=== PATIENT | female | born 1995 | race Hispanic/Latino ===

== ENCOUNTER 2017-08-11 21:49 | Inpatient (IN) | payer MEDICAID, OTHER ==
[~2017-08-11] VITALS: Ht 165.1 cm; Wt 51.3 kg
[2017-08-11 22:21] LABS: APPEARANCE,URINE Clear (CLEAR); BILIRUBIN,URINE Negative (NEGATIVE); COLOR,URINE Yellow (YELLOW); GLUCOSE, URINE (UA) Negative (NEGATIVE); KETONES,URINE Negative (NEGATIVE); LEUKOCYTE ESTERASE ,URINE Moderate (NEGATIVE); NITRATE,URINE Negative (NEGATIVE); OCCULT BLOOD,URINE Negative (NEGATIVE); PH,URINE 7.5 (5.0-8.0); PROTEIN,URINE Negative (NEGATIVE)
[2017-08-11 22:30] LABS: AMPHET/METH SCREEN,URINE NEGATIVE (NEGATIVE); BARBITURATE SCREEN, URINE NEGATIVE (NEGATIVE); BENZODIAZEPINES SCREEN,URINE NEGATIVE (NEGATIVE); CANNABINOID SCREEN,URINE NEGATIVE (NEGATIVE); COCAINE SCREEN,URINE NEGATIVE (NEGATIVE); OPIATE SCREEN,URINE NEGATIVE (NEGATIVE); PHENCYCLIDINE SCREEN,URINE NEGATIVE (NEGATIVE)
[2017-08-11 22:44] LABS: BACTERIA,URINE Few /HPF (None Seen); MUCUS,URINE None Seen LPF (None Seen); RBC,URINE None Seen /HPF (0-1); RENAL EPITHELIAL CELLS,URINE Moderate /LPF (None Seen); SQUAMOUS EPITHELIAL CELL,UR Few /LPF (0-2)
[2017-08-11 23:02] VITALS: BP 124/65
[2017-08-11] MEDS ORDERED: PROMETHAZINE HCL 25 MG/ML 1ML AMPULE IM PRN (23:15)
[2017-08-11] MEDS ORDERED: AMPICILLIN 2GM+NS 100ML 100 ML IV SCH (23:15)
[2017-08-11] MEDS ORDERED: MEPERIDINE-PF 50 MG/ML SYG IVP PRN (23:15)
[2017-08-11] MEDS ORDERED: LACTATED RINGERS 1000ML 1,000 ML IV ONE (23:28)
[2017-08-11] MEDS ORDERED: AMPICILLIN 2GM+NS 100ML 100 ML IV ONE (23:28)
[2017-08-12] MEDS: AMPICILLIN 1GM+NS 50ML 50 ML IV SCH ×4 (03:24→23:08)
[2017-08-12] MEDS: LACTATED RINGERS 1000ML 1,000 ML IV SCH (04:46)
[2017-08-12] MEDS ORDERED: FLU VACC QS2017-18 36MOS UP/PF 60 MCG/0.5 ML ML IM ONE (06:30)
[2017-08-12] MEDS ORDERED: LACTATED RINGERS 1000ML 1,000 ML IV PRN (08:06)
[2017-08-12 08:55] LABS: HEMATOCRIT 34.3 % (36-48); MEAN CORPUSCULAR HEMOGLOBIN 28.2 pg (27.0-33.0); MEAN CORPUSCULAR HGB CONC 33.7 g/dL (32.0-36.0); MEAN CORPUSCULAR VOLUME 83.8 fL (79-99); PLATELET COUNT (AUTO) 177 K/uL (130-400); RED BLOOD CELL COUNT(AUTO) 4.09 MIL/uL (4.00-5.50); RED CELL DISTRIBUTION WIDTH 14.2 % (11.0-15.5); WHITE BLOOD COUNT (AUTO) 8.6 K/uL (4.8-10.8)
[2017-08-12 10:05] LABS: RAPID PLASMA REAGIN NONREACTIVE (NONREACTIVE)
[2017-08-13] MEDS: AMPICILLIN 1GM+NS 50ML 50 ML IV SCH ×5 (03:26→23:46)
[2017-08-13] MEDS ORDERED: OXYTOCIN 10 USP UNITS/ML ONE ×2 (04:18→12:19)
[2017-08-13] MEDS ORDERED: LACTATED RINGERS 1000ML 1,000 ML IV ONE (04:18)
[2017-08-13] MEDS ORDERED: OXYTOCIN 10 USP UNITS/ML 20 UNIT in LACTATED RINGERS 1000ML 1,000 ML IV SCH (05:00)
[2017-08-13] MEDS ORDERED: ACETAMINOPHEN 325 MG TAB PO PRN (10:45)
[2017-08-13] MEDS ORDERED: OXYTOCIN-LR 20 UNITS/1000 ML 1,000 ML IV SCH (10:45)
[2017-08-13] MEDS ORDERED: MEASLES/MUMPS/RUBELLA VACCINE, LIVE 0.5 ML/VIAL SQ PRN (10:45)
[2017-08-13] MEDS ORDERED: WITCH HAZEL 1 PAD TP PRN (10:45)
[2017-08-13] MEDS ORDERED: DIPH,PERTUSS(ACELL),TET VAC/PF 0.5 ML VIAL IM PRN (10:45)
[2017-08-13] MEDS ORDERED: BENZOCAINE/LANOLIN/ALOE VERA 60 ML AEROSOL TP PRN (10:45)
[2017-08-13] MEDS ORDERED: ACETAMINOPHEN-CODEINE 300/30MG TAB PO PRN (10:45)
[2017-08-13] MEDS ORDERED: IBUPROFEN 600 MG TABLET PO PRN (10:45)
[2017-08-13] MEDS ORDERED: LANOLIN 30GM OINTMENT TP PRN (10:45)
[2017-08-13 14:40] VITALS: BP 137/90
[2017-08-13 15:29] VITALS: BP 141/85
[2017-08-13] MEDS ORDERED: FLU VACC QS2017-18 36MOS UP/PF 60 MCG/0.5 ML ML IM ONE (15:47)
[2017-08-13 19:40] VITALS: BP 137/82
[2017-08-13] MEDS: DOCUSATE SODIUM 100 MG CAP PO SCH (20:48)
[2017-08-13] MEDS: LACTATED RINGERS 1000ML 1,000 ML IV SCH (23:15)
[2017-08-13 23:50] VITALS: BP 122/77
[2017-08-14 03:12] VITALS: BP 125/77
[2017-08-14] MEDS: IBUPROFEN 800 MG TAB PO PRN ×2 (05:04→17:37)
[2017-08-14 06:26] LABS: HEMATOCRIT 28.5 % (36-48); MEAN CORPUSCULAR HEMOGLOBIN 28.4 pg (27.0-33.0); MEAN CORPUSCULAR HGB CONC 33.9 g/dL (32.0-36.0); MEAN CORPUSCULAR VOLUME 83.7 fL (79-99); NUCLEATED RED BLOOD CELLS 0.1 % (0.0-0.19); PLATELET COUNT (AUTO) 151 K/uL (130-400); RED BLOOD CELL COUNT(AUTO) 3.41 MIL/uL (4.00-5.50); RED CELL DISTRIBUTION WIDTH 14.1 % (11.0-15.5); WHITE BLOOD COUNT (AUTO) 13.6 K/uL (4.8-10.8)
[2017-08-14] MEDS: LACTATED RINGERS 1000ML 1,000 ML IV SCH (06:26)
[2017-08-14 07:40] VITALS: BP 125/56
[2017-08-14] MEDS: DOCUSATE SODIUM 100 MG CAP PO SCH ×2 (08:22→20:37)
[2017-08-14 11:26] VITALS: BP 113/67
[2017-08-14 12:08] LABS: HEPATITIS Bs ANTIGEN SCREEN P Negative (Negative)
[2017-08-14 15:51] VITALS: BP 125/77
[2017-08-14 20:06] VITALS: BP 126/68
[2017-08-14 23:37] VITALS: BP 122/64
[2017-08-15 02:39] VITALS: BP 125/45
[2017-08-15 07:48] VITALS: BP 120/64
[2017-08-15] MEDS: DOCUSATE SODIUM 100 MG CAP PO SCH (08:37)
[2017-08-15] MEDS: IBUPROFEN 800 MG TAB PO PRN (08:38)
[2017-08-15 11:07] VITALS: BP 101/47
[2017-08-15] MEDS ORDERED: FERS325 PO (12:35)
[2017-08-15] MEDS ORDERED: MO6B PO (12:37)
== END 2017-08-15 13:45 | disposition home or self-care (01) | DRG 774 ==
LOC: EDH 21:49 → OBSVTOIN 21:50 → LDH 21:50 → WSH 08-13 14:40
PROVIDERS: ADMIT Obstetrics & Gynecology; ATTEND Obstetrics & Gynecology
PROC: 0W8NXZZ Division of Female Perineum, External Approach (ICD-10-PCS; principal; 2017-08-13)
PROC: 10E0XZZ Delivery of Products of Conception, External Approach (ICD-10-PCS; 2017-08-13)
PROC: 3E0234Z Introduction of Serum, Toxoid and Vaccine into Muscle, Percutaneous Approach (ICD-10-PCS; 2017-08-13)
PROC: 3E0134Z Introduction of Serum, Toxoid and Vaccine into Subcutaneous Tissue, Percutaneous Approach (ICD-10-PCS; 2017-08-13)
DX: O99.824 Streptococcus B carrier state complicating childbirth (principal); O98.82 Other maternal infectious and parasitic diseases complicating childbirth; Z23 Encounter for immunization; Z37.0 Single live birth; Z3A.39 39 weeks gestation of pregnancy
CPT/HCPCS: 36415; 80305; 81001; 85027; 86592; 86701; 86850; 86900; 86901; 87340; 87390; 90715; 96360; 96361; A4351; J0290; J2175; J2550; J2590; J7120; Q2038